=== PATIENT | male | born 1940 | race Caucasian/White ===

== ENCOUNTER 2018-04-12 14:31 | Emergency (ER) | payer MEDICAID ==
[2018-04-12 14:31] VITALS: BMI 32.5
[2018-04-12 14:49] VITALS: TEMP 97.8
--- NOTE | 2018-04-12 15:25 | ED PDOC ---
Arrival/HPI - General Chief Complaint: Upper Extremity Problem/Injury Time Seen by Provider: 04/12/18 14:46 Historian: Patient - History of Present Illness Narrative History of Present Illness (Text): 04/12/18 15:19 A 77 year old male, whose past medical history includes hypertension and CABG, presents to the emergency department complaining of shoulder and neck pain for 2 days. Patient reports no known trauma. Patient denies any fever, or any other complaints at this time. No PMD Past Medical History - Provider Review Nursing Documentation Reviewed: Yes - Infectious Disease Hx of Infectious Diseases: None - Tetanus Immunization Tetanus Immunization: Unknown - Cardiac Hx Cardiac Disorders: Yes (CABG) Hx Hypertension: Yes - Pulmonary Hx Respiratory Disorders: No - Neurological Hx Neurological Disorder: No - HEENT Hx HEENT Disorder: No - Renal Hx Renal Failure: Yes - Endocrine/Metabolic Hx Endocrine Disorders: No - Hematological/Oncological Hx Blood Transfusions: Yes Hx Blood Transfusion Reaction: No - Musculoskeletal/Rheumatological Hx Musculoskeletal Disorders: No Hx Falls: No - Gastrointestinal Hx Gastrointestinal Disorders: Yes (N/V FOR 4 MONTHS 04-14-16) - Genitourinary/Gynecological Hx Genitourinary Disorders: No - Psychiatric Hx Psychophysiologic Disorder: No Hx Depression: No Hx Emotional Abuse: No Hx Physical Abuse: No Hx Substance Use: No - Surgical History Hx Open Heart Surgery: Yes - Anesthesia Hx Anesthesia Reactions: No Hx Malignant Hyperthermia: No - Suicidal Assessment Feels Threatened In Home Enviroment: No Family/Social History - Physician Review Nursing Documentation Reviewed: Yes Family/Social History: No Known Family HX Smoking Status: Never Smoked Hx Alcohol Use: No Hx Substance Use: No Hx Substance Use Treatment: No Allergies/Home Meds Allergies/Adverse Reactions: Allergies No Known Allergies Allergy (Verified 04/14/16 21:56) Home Medications: Home Meds Medication Instructions Recorded Confirmed RX: Amiodarone [Cordarone] 200 mg PO Q12 03/02/14 04/14/16 RX: Aspirin [Ecotrin] 81 mg PO DAILY 04/14/16 04/14/16 RX: Carvedilol [Coreg] 25 mg PO BID 04/14/16 04/14/16 RX: Furosemide [Lasix] 20 mg PO BID 04/14/16 04/14/16 RX: Nifedipine [Nifedical Xl] 30 mg PO DAILY 04/14/16 04/14/16 RX: Ondansetron ODT [Zofran ODT] 1 tab PO QID 04/14/16 04/14/16 RX: Pantoprazole [Protonix EC Tab] 40 mg PO DAILY 04/14/16 04/14/16 RX: Simvastatin 10 mg PO DAILY 04/14/16 04/14/16 RX: Tamsulosin [Flomax] 1 cap PO DAILY 04/14/16 04/14/16 Review of Systems - Physician Review All systems were reviewed & negative as marked: Yes - Review of Systems Constitutional: absent: Fevers, Other (no trauma) Musculoskeletal: Neck Pain, Other (shoulder pain) Physical Exam Vital Signs Reviewed: Yes Vital Signs Temp Pulse Resp BP Pulse Ox 04/12/18 14:47 97.8 F 77 18 120/84 99 Temperature: Afebrile Blood Pressure: Normal Pulse: Regular Respiratory Rate: Normal Appearance: Positive for: Well-Appearing, Non-Toxic, Comfortable Pain Distress: None Mental Status: Positive for: Alert and Oriented X 3 - Systems Exam Head: Present: Atraumatic, Normocephalic Pupils: Present: PERRL Extroacular Muscles: Present: EOMI Conjunctiva: Present: Normal Mouth: Present: Moist Mucous Membranes Neck: Present: Paraspinal Tenderness (paracervical tenderness). No: MIDLINE TENDERNESS Respiratory/Chest: Present: Clear to Auscultation, Good Air Exchange. No: Respiratory Distress, Accessory Muscle Use Cardiovascular: Present: Regular Rate and Rhythm, Normal S1, S2. No: Murmurs Abdomen: No: Tenderness, Distention, Peritoneal Signs Back: Present: Normal Inspection Upper Extremity: Present: Normal Inspection. No: Cyanosis, Edema Lower Extremity: Present: Normal Inspection. No: Edema Neurological: Present: GCS=15, CN II-XII Intact, Speech Normal Skin: Present: Warm, Dry, Normal Color. No: Rashes Psychiatric: Present: Alert, Oriented x 3, Normal Insight, Normal Concentration Medical Decision Making ED Course and Treatment: 04/12/18 15:21 Impression: 77 year old male with shoulder and neck pain. suspect torlticollis vs msk pain no fall no indication for emgent imaging neck supple. exm consistent with msk pain. no trauma. Plan: -- Flexeril -- Toradol -- Reassess and disposition Progress Notes: 10/27/18 15:29 Patient states she is feeling better and does not want any further treatments here in the Emergency room. Patient requests to be discharged. - Medication Orders Current Medication Orders: Discontinued Medications Cyclobenzaprine HCl (Flexeril) 10 mg PO STAT STA Stop: 04/12/18 14:57 Last Admin: 04/12/18 15:08 Dose: 10 mg Ketorolac Tromethamine (Toradol) 30 mg IM STAT STA Stop: 04/12/18 14:57 Last Admin: 04/12/18 15:09 Dose: 30 mg MAR Pain Assessment Document 04/12/18 15:09 JUSTINA (Rec: 04/12/18 15:10 JUSTINA [id number]) Pain Reassessment Is this a pain reassessment? Yes Presence of Pain Presence of Pain Yes Pain Scale Used Protocol: PSCALES Pain Scale Used Numeric Location Left, Right or Bilateral Bilateral Pain Location Body Site Shoulder Description Description Constant Intensity of Pain at present 5 IM Administration Charges Document 04/12/18 15:09 JUSTINA (Rec: 04/12/18 15:10 JUSTINA [id number]) Injection Site MAR Injection Site Left Deltoid Charges for Administration # of IM Administrations 1 - Scribe Statement The provider has reviewed the documentation as recorded by the Giovana Zarate Provider Scribe Attestation: All medical record entries made by the Froyibneelam were at my direction and personally dictated by me. I have reviewed the chart and agree that the record accurately reflects my personal performance of the history, physical exam, medical decision making, and the department course for this patient. I have also personally directed, reviewed, and agree with the discharge instructions and disposition. Disposition/Present on Arrival - Present on Arrival Any Indicators Present on Arrival: No History of DVT/PE: No History of Uncontrolled Diabetes: No Urinary Catheter: No History of Decub. Ulcer: No History Surgical Site Infection Following: None - Disposition Have Diagnosis and Disposition been Completed?: Yes Diagnosis: Neck pain, Shoulder pain Disposition: HOME/ ROUTINE Disposition Time: 15:00 Condition: STABLE Discharge Instructions (ExitCare): Chronic Neck Pain (DC), Generalized Neck Pain, Generalized Neck Pain (DC), Shoulder Pain (DC) Additional Instructions: return to er with worsening symptoms or concerns. please follow up with your doctor/ you may need further testing as an outpatient. return immediately with any worsening symptoms or concerns. Prescriptions: Cyclobenzaprine [Cyclobenzaprine HCl] 10 mg PO DAILY PRN #10 tab PRN Reason: Muscle Spasm Lidocaine 5% [Lidoderm] 1 ea TD DAILY PRN #4 patch PRN Reason: Pain, Mild (1-3) RX: Naproxen 500 mg PO BID PRN #14 tablet PRN Reason: Pain, Mild (1-3) Forms: [employer] ([place])
[2018-04-12 15:49] VITALS: BP 142/86; PULSE 68; RESP 16; O2SAT 98
== END 2018-04-12 15:47 | disposition home or self-care (01) ==
LOC: ED 14:31
DX: M54.2 Cervicalgia (principal); M25.519 Pain in unspecified shoulder
CPT/HCPCS: 96372; 99283; J1885